=== PATIENT | female | born 1995 | race African-American/Black ===

== ENCOUNTER 2020-05-08 07:05 | Emergency (ER) | payer SELFPAY ==
[~2020-05-08] VITALS: Ht 165.1 cm; Wt 106.6 kg
[2020-05-08] MEDS ORDERED: SODIUM CHLORIDE 0.9% 1000ML 1,000 ML IV STA (07:32)
[2020-05-08] MEDS ORDERED: PIPER-TAZ 3.375 GM 50 ML IV STA (07:43)
[2020-05-08] MEDS ORDERED: SODIUM CHLORIDE FLUSH 10 ML SYR INJ PRN (07:45)
--- OUTSIDE RECORDS SUMMARY | 2020-05-08 08:04 | XMS REPORT | Continuity of Care Document ---
Author Author [facility] Organization [facility] Address [address] [place] [address] Phone Unavailable Care Team Providers Care Water Treatment Operator Name Role Phone Unavailable Unavailable Payers Payer Name Policy Type Policy Number Effective Date Expiration Date S ource Problems This patient has no known problems. Allergies, Adverse Reactions, Alerts Allergy Name Allergy Type Status Severity Reaction(s) Onset Date Inacti ve Date Treating Clinician Comments Source No Known Allergies DA Active U 2020-04-01 00:00:00 [facility] Medications This patient has no known medications. Procedures This patient has no known procedures. Results Test Description Test Time Test Comments Results Result Comments Source - US PELVIS COMPLETE 2020-04-30 12:45:00 Name: DARIEN CONNELL [facility] : 1995 Age/S: 24 / F [address] [facility] Unit #: [id number] Loc: [place] [address] Phys: Kenroy Mckoy Acct: [id number] Dis Date: Status: REG ER PHONE #: [phone] Exam Date: 04/30/2020 1239 FAX #: [phone] Reason: PELVIC PAIN EXAMS: CPT CODE: [id number] US PELVIS COMPLETE 65453 REASON FOR EXAM: PELVIC PAIN EXAM ORDER DATE: 04/30/2020 11:25 AM Attending MConstantinoDConstantino: Kenroy Mckoy PROCEDURE: - DUP AB/PEL/SC COMP, - US TRANSVAGINAL NON OB, - US PELVIS COMPLETE Technique: Grayscale images, color doppler, and spectral doppler images of the uterus and ovaries were obtained utilizing A transabdominal and transvaginal approach. Comparison study: Pelvic ultrasound 04/01/2020 FINDINGS: Uterus: size: 7.9 x 5.4 x 5.4 cm using transabdominal measurements echogenicity/masses: Probable multi fibroid uterus. The largest measures up to 1.4 x 1.1 x 1.1 cm. endometrium: 3.7 mm Duplex scans of the ovarian arteries were performed. Casanova scale images were supplemented with color-flow Doppler. Doppler flow velocity analysis (duplex Doppler) was performed. Right ovary: size: 2.7 x 1.6 x 2.3 cm cysts/masses: None Doppler findings: Normal arterial and venous waveforms. adnexal masses: None Left ovary: size: 2 x 1.4 x 2.2 cm cysts/masses: None Doppler findings: Normal arterial and venous waveforms. adnexal masses: None Free fluid: No fluid seen in the cul-de-sac. IMPRESSION: Multi fibroid uterus. Otherwise unremarkable pelvic ultrasound. PAGE 1 Signed Report (CONTINUED) Name: DARIEN CONNELL [facility] : 1995 Age/S: 24 / F [address] [facility] Unit #: [id number] Loc: [place] [address] Phys: Kenroy Mckoy Acct: [id number] Dis Date: Status: REG ER PHONE #: [phone] Exam Date: 04/30/2020 1239 FAX #: [phone] Reason: PELVIC PAIN EXAMS: CPT CODE: [id number] US PELVIS COMPLETE 27723 <Continued> Location: [facility] at 1245 Reported and signed by: Farhan Stovall M.D. CC: Adelso Gibbons MD; Kenroy Mckoy Technologist: Brina Samuels RDMS Trnscb Date/Time: 04/30/2020 (9833) [email or web address] Orig Print D/T: S: 04/30/2020 (7591) Probe: PAGE 2 Signed Report - US TRANSVAGINAL NON OB 2020-04-30 12:45:00 N vee: RODNEY CONNELLRENZO Kesha [facility] : 1995 Age/S: 24 / F [address] [facility] Unit #: [id number] Loc: [place] [address] Phys: Kenroy Mckoy Acct: [id number] Dis Date: Status: REG ER PHONE #: [phone] Exam Date: 04/30/2020 1239 FAX #: [phone] Reason: Pelvic Pain EXAMS: CPT CODE: [id number] [place] [address] REASON FOR EXAM: PELVIC PAIN EXAM ORDER DATE: 04/30/2020 11:25 AM Attending MDanya.: Kenroy Mckoy PROCEDURE: - DUP AB/PEL/SC COMP, - US TRANSVAGINAL NON OB, - US PELVIS COMPLETE Technique: Grayscale images, color doppler, and spectral doppler images of the uterus and ovaries were obtained utilizing A transabdominal and transvaginal approach. Comparison study: Pelvic ultrasound 04/01/2020 FINDINGS: Uterus: size: 7.9 x 5.4 x 5.4 cm using transabdominal measurements echogenicity/masses: Probable multi fibroid uterus. The largest measures up to 1.4 x 1.1 x 1.1 cm. endometrium: 3.7 mm Duplex scans of the ovarian arteries were performed. Casanova scale images were supplemented with color-flow Doppler. Doppler flow velocity analysis (duplex Doppler) was performed. Right ovary: size: 2.7 x 1.6 x 2.3 cm cysts/masses: None Doppler findings: Normal arterial and venous waveforms. adnexal masses: None Left ovary: size: 2 x 1.4 x 2.2 cm cysts/masses: None Doppler findings: Normal arterial and venous waveforms. adnexal masses: None Free fluid: No fluid seen in the cul-de-sac. IMPRESSION: Multi fibroid uterus. Otherwise unremarkable pelvic ultrasound. PAGE 1 Signed Report (CONTINUED) Name: RODNEY CONNELLRENZO Kesha [facility] : 1995 Age/S: 24 / F [address] [facility] Unit #: [id number] Loc: [place] [address] Phys: Kenroy Mckoy Acct: [id number] Dis Date: Status: REG ER PHONE #: [phone] Exam Date: 04/30/2020 1239 FAX #: [phone] Reason: Pelvic Pain EXAMS: CPT CODE: [id number] [place] [address] <Continued> Location: [facility] at 1245 Reported and signed by: Farhan Stovall M.D. CC: Adelso Gibbons MD; Kenroy Mckoy Technologist: Brina Samuels RDMS Trnndb Date/Time: 04/30/2020 (1245) [email or web address] Orig Print D/T: S: 04/30/2020 (1788) Probe: [id number] PAGE 2 Signed Report - DUP AB/PEL/SC COMP 2020-04-30 12:45:00 Name: DARIEN CONNELL [facility] : 1995 Age/S: 24 / F [address] [facility] Unit #: [id number] Loc: [place] [address] Phys: EanKenroy Ronni TRACEYP Acct: [id number] Dis Date: Status: REG ER PHONE #: [phone] Exam Date: 04/30/2020 1239 FAX #: [phone] Reason: PELVIC PAIN EXAMS: CPT CODE: [id number] DUP AB/PEL/SC COMP 90440 REASON FOR EXAM: PELVIC PAIN EXAM ORDER DATE: 04/30/2020 11:25 AM Attending Erik: Kenroy Mckoy PROCEDURE: - DUP AB/PEL/SC COMP, - US TRANSVAGINAL NON OB, - US PELVIS COMPLETE Technique: Grayscale images, color doppler, and spectral doppler images of the uterus and ovaries were obtained utilizing A transabdominal and transvaginal approach. Comparison study: Pelvic ultrasound 04/01/2020 FINDINGS: Uterus: size: 7.9 x 5.4 x 5.4 cm using transabdominal measurements echogenicity/masses: Probable multi fibroid uterus. The largest measures up to 1.4 x 1.1 x 1.1 cm. endometrium: 3.7 mm Duplex scans of the ovarian arteries were performed. Casanova scale images were supplemented with color-flow Doppler. Doppler flow velocity analysis (duplex Doppler) was performed. Right ovary: size: 2.7 x 1.6 x 2.3 cm cysts/masses: None Doppler findings: Normal arterial and venous waveforms. adnexal masses: None Left ovary: size: 2 x 1.4 x 2.2 cm cysts/masses: None Doppler findings: Normal arterial and venous waveforms. adnexal masses: None Free fluid: No fluid seen in the cul-de-sac. IMPRESSION: Multi fibroid uterus. Otherwise unremarkable pelvic ultrasound. PAGE 1 Signed Report (CONTINUED) Name: DARIEN CONNELL [facility] : 1995 Age/S: 24 / F [address] [facility] Unit #: [id number] Loc: [place] [address] Phys: Kenroy Mckoy Acct: [id number] Dis Date: Status: REG ER PHONE #: [phone] Exam Date: 04/30/2020 1239 FAX #: [phone] Reason: PELVIC PAIN EXAMS: CPT CODE: [id number] DUP AB/PEL/SC COMP 10352 <Continued> Location: [facility] at 1245 Reported and signed by: Farhan Stovall M.D. CC: Adelso Gibbons MD; Kenroy Mckoy Technologist: Brina Samuels RDMS Trnscb Date/Time: 04/30/2020 (1245) [email or web address] Orig Print D/T: S: 04/30/2020 (8088) Probe: PAGE 2 Signed Report BASIC METABOLIC PANEL 2020-04-30 12:10:00 Test Item SODIUM (test code = NA) 139 mmol/L 135-148 N POTASSIUM (test code = K) 3.7 mmol/L 3.5-5.1 N CHLORIDE (test code = CL) 105 mmol/L 101-109 N CARBON DIOXIDE (test code = CO2) 24.5 mmol/L 21-32 N ANION GAP (test code = GAP) 13 mmol/L 10-20 N GLUCOSE (test code = GLU) 104 mg/dL 74-106 N BLOOD UREA NITROGEN (test code = BUN) 13 mg/dL 3-21 N GLOMERULAR FILTRATION RATE (test code = GFR) > 60 mL/min >=60 Estimated GFR by using Modified MDRD formula.Chronic kidney disease is defined as either kidney damageor GFR <60 mL/min/1.73 m2 for >3 months. CREATININE (test code = CREAT) 0.80 mg/dL 0.55-1.3 N BUN/CREATININE RATIO (test code = BUN/CREA) 16.3 10-20 N CALCIUM (test code = CA) 8.9 mg/dL 8.4-10.2 N HEPATIC FUNCTION [id number] 12:10:00* Test Item Value Reference Range Interpretation Comments TOTAL PROTEIN (test code = PROT) 8.0 g/dL 6.5-8.4 N ALBUMIN (test code = ALB) 3.1 g/dL 3.4-4.8 L GLOBULIN (test code = GLOB) 4.9 G/DL 1-10 N ALBUMIN/GLOBULIN RATIO (test code = A/G) 0.6 RATIO 0.75-1.50 L BILIRUBIN TOTAL (test code = BILT) 0.30 mg/dL 0.0-1.0 N BILIRUBIN DIRECT (test code = BILD) 0.10 mg/dL 0.0-0.30 N SGOT/AST (test code = AST) 14 U/L 6-32 N SGPT/ALT (test code = ALT) 23 U/L 12-78 N N ote: Change in REFERENCE RANGE due to new reagent method. ALKALINE PHOSPHATASE TOTAL (test code = ALKP) 65 U/L 38-126 N [id number] 12:10:00* Test Item Value Reference Range Interpretation Comments LIPASE (test code = LIP) 134 U/L 128-270 N HCG SERUM [id number] 12:10:00* Test Item Value Reference Range Interpretation Comments HCG SERUM QUAL (test code = HCGQL) NEGATIVE NEGATIVE This HCGQL test is NOT applicable for MALE patients.Check with nurse about probable order error.If Tumor Marker Test needed, nurse should order test "HCGTU"(Test #550.01800) URINALYSIS [id number] 12:09:00* Test Item Value Reference Range Interpretation Comments UA COLOR (test code = COLU) YELLOW YELLOW UA APPEARANCE (test code = APPU) HAZY CLEAR A UA GLUCOSE DIPSTICK (test code = DGLUU) norm mg/dL NEGATIVE UA BILIRUBIN DIPSTICK (test code = BILU) NEGATIVE mg/dL NEGATIVE UA KETONE DIPSTICK (test code = KETU) 5 (Trace) mg/dL NEGATIVE A UA SPECIFIC GRAVITY (test code = SGU) 1.025 1.001-1.035 UA BLOOD DIPSTICK (test code = SERG) 150 (3+) Douglas/uL NEGATIVE A UA PH DIPSTICK (test code = LUKE) 6.0 5.0-8.0 UA PROTEIN DIPSTICK (test code = PROU) 30 (1+) mg/dL Neg-15 A UA UROBILINIOGEN DIPSTICK (test code = URO) 1 mg/dL 0.0-0.2 A UA NITRITE DIPSTICK (test code = JOSÉ LUIS) NEGATIVE NEGATIVE UA LEUKOCYTE ESTERASE DIPSTICK (test code = LEUU) 25 Jerri/uL (Tra ce) uL NEGATIVE A UA WBC (test code = WBCU) 0-5 per HPF 0-5 UA RBC (test code = RBCU) 0-3 per HPF 0-5 UA EPITHELIAL CELLS (test code = EPIU) Moderate (5-10/hpf) per HPF Few UA BACTERIA (test code = BACU) MANY per HPF NONE Urine Source? Clean CatchBASIC METABOLIC [id number] 12:08:00* Test Item Value Reference Range Interpretation Comments SODIUM (test code = NA) 139 mmol/L 135-148 N POTASSIUM (test code = K) 3.7 mmol/L 3.5-5.1 N CHLORIDE (test code = CL) 105 mmol/L 101-109 N CARBON DIOXIDE (test code = CO2) 24.5 mmol/L 21-32 N ANION GAP (test code = GAP) 13 mmol/L 10-20 N GLUCOSE (test code = GLU) 104 mg/dL 74-106 N BLOOD UREA NITROGEN (test code = BUN) 13 mg/dL 3-21 N GLOMERULAR FILTRATION RATE (test code = GFR) > 60 mL/min >=60 Estimated GFR by using Modified MDRD formula.Chronic kidney disease is defined as either kidney damageor GFR <60 mL/min/1.73 m2 for >3 months. CREATININE (test code = CREAT) 0.80 mg/dL 0.55-1.3 N BUN/CREATININE RATIO (test code = BUN/CREA) 16.3 10-20 N CALCIUM (test code = CA) 8.9 mg/dL 8.4-10.2 N HEPATIC FUNCTION [id number] 12:08:00* Test Item Value Reference Range Interpretation Comments TOTAL PROTEIN (test code = PROT) gram/dL 6.4-8.2 ALBUMIN (test code = ALB) g/dL 3.4-5.0 GLOBULIN (test code = GLOB) g/dL 2.7-4.2 ALBUMIN/GLOBULIN RATIO (test code = A/G) 0.75-1.50 BILIRUBIN TOTAL (test code = BILT) mg/dL 0.2-1.2 BILIRUBIN DIRECT (test code = BILD) mg/dL 0.0-0.20 SGOT/AST (test code = AST) IUnit/L 15-37 SGPT/ALT (test code = ALT) U/L 10-69 ALKALINE PHOSPHATASE TOTAL (test code = ALKP) IUnit/L 45-117 [id number] 12:08:00* Test Item Value Reference Range Interpretation Comments LIPASE (test code = LIP) Unit/L 144-286 HCG SERUM [id number] 12:08:00* Test Item Value Reference Range Interpretation Comments HCG SERUM QUAL (test code = HCGQL) NEGATIVE NEGATIVE This HCGQL test is NOT applicable for MALE patients.Check with nurse about probable order error.If Tumor Marker Test needed, nurse should order test "HCGTU"(Test #550.74721) BASIC METABOLIC [id number] 12:04:00* Test Item Value Reference Range Interpretation Comments SODIUM (test code = NA) 139 mmol/L 135-148 N POTASSIUM (test code = K) 3.7 mmol/L 3.5-5.1 N CHLORIDE (test code = CL) 105 mmol/L 101-109 N CARBON DIOXIDE (test code = CO2) 24.5 mmol/L 21-32 N ANION GAP (test code = GAP) 13 mmol/L 10-20 N GLUCOSE (test code = GLU) 104 mg/dL 74-106 N BLOOD UREA NITROGEN (test code = BUN) 13 mg/dL 3-21 N GLOMERULAR FILTRATION RATE (test code = GFR) > 60 mL/min >=60 Estimated GFR by using Modified MDRD formula.Chronic kidney disease is defined as either kidney damageor GFR <60 mL/min/1.73 m2 for >3 months. CREATININE (test code = CREAT) 0.80 mg/dL 0.55-1.3 N BUN/CREATININE RATIO (test code = BUN/CREA) 16.3 10-20 N CALCIUM (test code = CA) 8.9 mg/dL 8.4-10.2 N HEPATIC FUNCTION [id number] 12:04:00* Test Item Value Reference Range Interpretation Comments TOTAL PROTEIN (test code = PROT) gram/dL 6.4-8.2 ALBUMIN (test code = ALB) g/dL 3.4-5.0 GLOBULIN (test code = GLOB) g/dL 2.7-4.2 ALBUMIN/GLOBULIN RATIO (test code = A/G) 0.75-1.50 BILIRUBIN TOTAL (test code = BILT) mg/dL 0.2-1.2 BILIRUBIN DIRECT (test code = BILD) mg/dL 0.0-0.20 SGOT/AST (test code = AST) IUnit/L 15-37 SGPT/ALT (test code = ALT) U/L 10-69 ALKALINE PHOSPHATASE TOTAL (test code = ALKP) IUnit/L 45-117 [id number] 12:04:00* Test Item Value Reference Range Interpretation Comments LIPASE (test code = LIP) Unit/L 144-286 HCG SERUM [id number] 12:04:00* Test Item Value Reference Range Interpretation Comments HCG SERUM QUAL (test code = HCGQL) NEGATIVE URINALYSIS [id number] 12:02:00* Test Item Value Reference Range Interpretation Comments UA COLOR (test code = COLU) YELLOW YELLOW UA APPEARANCE (test code = APPU) HAZY CLEAR A UA GLUCOSE DIPSTICK (test code = DGLUU) norm mg/dL NEGATIVE UA BILIRUBIN DIPSTICK (test code = BILU) NEGATIVE mg/dL NEGATIVE UA KETONE DIPSTICK (test code = KETU) 5 (Trace) mg/dL NEGATIVE A UA SPECIFIC GRAVITY (test code = SGU) 1.025 1.001-1.035 UA BLOOD DIPSTICK (test code = SERG) 150 (3+) Douglas/uL NEGATIVE A UA PH DIPSTICK (test code = LUKE) 6.0 5.0-8.0 UA PROTEIN DIPSTICK (test code = PROU) 30 (1+) mg/dL Neg-15 A UA UROBILINIOGEN DIPSTICK (test code = URO) 1 mg/dL 0.0-0.2 A UA NITRITE DIPSTICK (test code = JOSÉ LUIS) NEGATIVE NEGATIVE UA LEUKOCYTE ESTERASE DIPSTICK (test code = LEUU) 25 Jerri/uL (Tra ce) uL NEGATIVE A UA WBC (test code = WBCU) per HPF 0-5 UA RBC (test code = RBCU) per HPF 0-5 UA EPITHELIAL CELLS (test code = EPIU) per HPF Few UA BACTERIA (test code = BACU) per HPF NONE Urine Source? Clean CatchCBC W/O [id number] 11:56:00* Test Item Value Reference Range Interpretation Comments WHITE BLOOD CELL (test code = WBC) 8.3 K/mm3 4.5-12.5 N RED BLOOD CELL (test code = RBC) 4.91 mill/mm3 3.7-5.2 N HEMOGLOBIN (test code = HGB) 11.1 gram/dL 11.5-15.5 L HEMATOCRIT (test code = HCT) 36.0 % 36.0-46.0 N MEAN CELL VOLUME (test code = MCV) 73.3 fL 80-98 L MEAN CELL HGB (test code = MCH) 22.6 picogram 27.0-33.0 L MEAN CELL HGB CONCETRATION (test code = MCHC) 30.8 gram/dL 33.0-36. 0 L RED CELL DISTRIBUTION WIDTH (test code = RDW) 14.5 % 11.6-16. 2 N RED CELL DISTRIBUTION WIDTH SD (test code = RDW-SD) 38.8 fL 37 .0-51.0 N PLATELET COUNT (test code = PLT) 419 K/mm3 150-450 N MEAN PLATELET VOLUME (test code = MPV) 9.7 fL 6.7-11.0 N CHLAMYDIA GC DNA BY [id number] 13:09:00* Test Item Value Reference Range Interpretation Comments C. TRACHOMATIS DNA BY PCR (test code = CHLAMTDNA) Negative Nega tive N. GONORRHOEAE DNA BY PCR (test code = NGONORDNA) Negative Nega tive [facility]formed At: [facility] [place], [place] [id number] Aceves MD Ph:[phone] performed at: [facility] [address] [place] [address] - CT ABD PELVIS [id number] 19:36:00 Name: DARIEN CONNELL [facility] : 1995 Age/S: 24 / F [address] [facility] Unit #: [id number] Loc: [place] [address] Phys: Geovany Mai MD Acct: [id number] Dis Date: Status: REG ER PHONE #: [phone] Exam Date: 04/01/2020 175 FAX #: [phone] Reason: RLQ pain EXAMS: CPT CODE: [id number] CT ABD PELVIS W/CONT 53349 EXAM: CT of the abdomen and pelvis with contrast; INFORMATION: Right lower quadrant pain; TECHNIQUE AND FINDINGS: CT dose reduction protocol; 5 mm cuts through the abdomen and pelvis during and after intravenous infusion of contrast material. The liver is enlarged and shows slightly decreased attenuation. No focal lesions. No abnormalities of the biliary system. Pancreas and spleen unremarkable. 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 The left adrenal gland is also absent. The right adrenal gland is not clearly identified but there is no evidence of an adrenal mass lesion. The right kidney is unremarkable; no hydronephrosis. No acute bowel abnormalities. The uterus is enlarged with a solid nodule along its posterior portion. No adnexal lesions. Lung bases are clear. IMPRESSION: 1. No acute abdominal or pelvic abnormalities. 2. Fatty infiltration of the liver. 3. Solitary and unremarkable right kidney. 4. Uterine fibroid. Location code: [facility] at 1936 Reported and signed by: Edu Barr M.D. CC: Geovany Mai MD Technologist:Sue Bonilla CTDI: DLP: Trnscb Date/Time: 04/01/2020 (1935) [email or web address] Orig Print D/T: S: 04/01/2020 (1938) PAGE 1 Signed Report - DUP AB/PEL/SC [id number] 19:01:00 Name: DARIEN CONNELL [facility] : 1995 Age/S: 24 / F [address] [facility] Unit #: [id number] Loc: [place] [address] Phys: Avinash Mai MD Acct: [id number] Di s Date: Status: REG ER PHONE #: Exam Date: 04/01/2020 2863 FAX #: [phone] Reason: RLQ pain and vaginal bleeding EXAMS: CPT CODE: [id number] DUP AB/PEL/SC COMP 18153 EXAM: Transvaginal ultras ound and Doppler sonography; INFORMATION: Right lower quadrant sara n and vaginal bleeding; TECHNIQUE AND FINDINGS: Transvaginal grayscale imaging was combined with color Doppler sonography and spectral analysis. The uterus is of normal size and shape. It measures 7.4 x 2.9 x 3.9 cm. Thin endometrial stripe, measuring 5 mm in thickness; no fl uid collection within the endometrial canal. A solid nodule is seen within the myometrium, measuring 4.8 x 3.9 cm in diameter. This is consist ent with a fibroid. The ovaries are of normal size and shape and with norm al flow pattern on Doppler exam. The right ovary measures 3.2 x 1.8 x 2.3 cm. The left ovary measures 2.5 x 1.6 x 2.2 cm. No free fluid within the cul-de-sac. IMPRESSION: 1. Uterine fibroid. 2. No adnexal lesions. Location code: [facility] at 1901 Reported and signed by: Edu Barr M.D. CC: Geovany Mai MD Technologist: Bolivar Mendez [facility] Trnscb Date/Time: 04/01/2020 (1900) [email or web address] Orig Print D/T: S: 04/01/2020 (1903) Probe: PAGE 1 Signed Report - US TRANSVAGINAL NON [id number] 19:01:00 Name: DARIEN CONNELL [facility] : 1995 Age/S: 24 / [address] [facility] Unit #: [id number] Loc: [place] [address] Phys: Geovany Mai MD Acct: [id number] Dis Date: Status: REG ER PHONE #: [phone] Exam Date: 04/01/20201743 FAX #: [phone] Reason: RLQ pain and vaginal bleeding EXAMS: CPT CODE: [id number] [place] [address] EXAM: Transvaginal ultrasound and Doppler sonography; INFORMATION: Right lower quadrant pain and vaginal bleeding; TECHNIQUE AND FINDINGS: Transvaginal grayscale imaging was combined with color Doppler sonography and spectral analysis. The uterus is of normal size and shape. It measures 7.4 x 2.9 x 3.9 cm. Thin endometrial stripe, measuring 5 mm in thickness; no fluid collection within the endometrial canal. A solid nodule is seen within the myometrium, measuring 4.8 x 3.9 cm in diameter. This is consistent with a fibroid. The ovaries are of normal size and shape and with normal flow pattern on Doppler exam. The right ovary measures 3.2 x 1.8 x 2.3 cm. The left ovary measures 2.5 x 1.6 x 2.2 cm. No free fluid within the cul-de-sac. IMPRESSION: 1. Uterine fibroid. 2. No adnexal lesions. Location code: [facility] at 1901 Reported and signed by: Edu Barr M.D. CC: Geovany Mai MD Technologist: Bolivar Mendez RDOK Trnndb Date/Time: 04/01/2020 (1900) Perry Orig Print D/T: S: 04/01/2020 (1903) Probe: [id number] PAGE 1 Signed Report - XR CHEST 1 [id number] 17:59:00 Name: DARIEN CONNELL [facility] : 1995 Age/S:24 /F [address] [facility] Unit#:[id number] Loc: [place] [address] Phys: Avinash Mai MD Dis Date: PHONE #: [phone] Status: PRE ER FAX #: [phone] Exam Date: 04/01/2020 Re ason: Abdominal Pain EXAMS: CPT CODE: [id number] XR CHEST 1 V 43040 EXAM: Chest X-ray, 1 view; CLINICAL HISTORY: Chest pain and abdominal pain; FINDINGS: The lungs are clear, no infiltrates, no edema; no effusions; no pneu mothorax; normal cardiomediastinal silhouette. IMPRESSION: Normal chest x-ray. Location code: [facility] at 1759 Reported and signed by: Edu Barr M.D. CC: Geovany Mai MD Technologist: Sue Bonilla Trnscrpt Data: 04/01/2020 (1758) Perry Orig Print D/T: S: 04/01/2020 (1803) PAGE 1 Signed Report BASIC METABOLIC PANEL 2020-04-01 17:09:00* Test Item Value Reference Range Interpretation Comments SODIUM (test code = NA) 138 mmol/L 136-145 N POTASSIUM (test code = K) 3.8 mmol/L 3.5-5.1 N CHLORIDE (test code = CL) 105 mmol/L 101-109 N CARBON DIOXIDE (test code = CO2) 24.4 mmol/L 21-32 N ANION GAP (test code = GAP) 12 mmol/L 10-20 N GLUCOSE (test code = GLU) 89 mg/dL 74-106 N BLOOD UREA NITROGEN (test code = BUN) 15 mg/dL 3-21 N GLOMERULAR FILTRATION RATE (test code = GFR) > 60 mL/min >=60 Estimated GFR by using Modified MDRD formula.Chronic kidney disease is defined as either kidney damageor GFR <60 mL/min/1.73 m2 for >3 months. CREATININE (test code = CREAT) 0.98 mg/dL 0.55-1.3 N BUN/CREATININE RATIO (test code = BUN/CREA) 15.3 10-20 N CALCIUM (test code = CA) 8.8 mg/dL 8.4-10.2 N HEPATIC FUNCTION [id number] 17:09:00* Test Item Value Reference Range Interpretation Comments TOTAL PROTEIN (test code = PROT) 8.1 g/dL 6.5-8.4 N ALBUMIN (test code = ALB) 3.3 g/dL 3.4-4.8 L GLOBULIN (test code = GLOB) 4.8 G/DL 1-10 N ALBUMIN/GLOBULIN RATIO (test code = A/G) 0.69 RATIO 0.75-1.50 L BILIRUBIN TOTAL (test code = BILT) 0.20 mg/dL 0.0-1.0 N BILIRUBIN DIRECT (test code = BILD) 0.00 mg/dL 0.0-0.30 N SGOT/AST (test code = AST) 14 U/L 6-32 N SGPT/ALT (test code = ALT) 23 U/L 12-78 N N ote: Change in REFERENCE RANGE due to new reagent method. ALKALINE PHOSPHATASE TOTAL (test code = ALKP) 63 U/L 38-126 N [id number] 17:09:00* Test Item Value Reference Range Interpretation Comments LIPASE (test code = LIP) 161 U/L 128-270 N HCG SERUM [id number] 17:09:00* Test Item Value Reference Range Interpretation Comments HCG SERUM QUAL (test code = HCGQL) NEGATIVE NEGATIVE This HCGQL test is NOT applicable for MALE patients.Check with nurse about probable order error.If Tumor Marker Test needed, nurse should order test "HCGTU"(Test #[id number]) [id number] 17:09:00* Test Item Value Reference Range Interpretation Comments TROPONIN-I (test code = TROPI) <0.015 ng/mL 0.00-0.056 N URINALYSIS [id number] 17:02:00* Test Item Value Reference Range Interpretation Comments UA COLOR (test code = COLU) DARK YELLOW YELLOW A UA APPEARANCE (test code = APPU) HAZY CLEAR A UA GLUCOSE DIPSTICK (test code = DGLUU) norm mg/dL NEGATIVE UA BILIRUBIN DIPSTICK (test code = BILU) NEGATIVE mg/dL NEGATIVE UA KETONE DIPSTICK (test code = KETU) 5 (Trace) mg/dL NEGATIVE A UA SPECIFIC GRAVITY (test code = SGU) 1.020 1.001-1.035 UA BLOOD DIPSTICK (test code = SERG) neg Douglas/uL NEGATIVE UA PH DIPSTICK (test code = LUKE) 5.0 5.0-8.0 UA PROTEIN DIPSTICK (test code = PROU) 15 (TRACE) mg/dL Neg-15 A UA UROBILINIOGEN DIPSTICK (test code = URO) 1 mg/dL 0.0-0.2 A UA NITRITE DIPSTICK (test code = JOSÉ LUIS) NEGATIVE NEGATIVE UA LEUKOCYTE ESTERASE DIPSTICK (test code = LEUU) 25 Jerri/uL (Tra ce) uL NEGATIVE A UA WBC (test code = WBCU) 0-5 per HPF 0-5 UA RBC (test code = RBCU) NONE SEEN per HPF 0-5 UA EPITHELIAL CELLS (test code = EPIU) Few (2-5/hpf) per HPF Few UA BACTERIA (test code = BACU) MANY per HPF NONE A UA MUCUS (test code = MUCU) MODERATE per LPF NONE-FEW A Urine Source? Clean CatchBASIC METABOLIC [id number] 17:01:00* Test Item Value Reference Range Interpretation Comments SODIUM (test code = NA) 138 mmol/L 136-145 N POTASSIUM (test code = K) 3.8 mmol/L 3.5-5.1 N CHLORIDE (test code = CL) 105 mmol/L 101-109 N CARBON DIOXIDE (test code = CO2) 24.4 mmol/L 21-32 N ANION GAP (test code = GAP) 12 mmol/L 10-20 N GLUCOSE (test code = GLU) 89 mg/dL 74-106 N BLOOD UREA NITROGEN (test code = BUN) 15 mg/dL 3-21 N GLOMERULAR FILTRATION RATE (test code = GFR) > 60 mL/min >=60 Estimated GFR by using Modified MDRD formula.Chronic kidney disease is defined as either kidney damageor GFR <60 mL/min/1.73 m2 for >3 months. CREATININE (test code = CREAT) 0.98 mg/dL 0.55-1.3 N BUN/CREATININE RATIO (test code = BUN/CREA) 15.3 10-20 N CALCIUM (test code = CA) 8.8 mg/dL 8.4-10.2 N HEPATIC FUNCTION [id number] 17:01:00* Test Item Value Reference Range Interpretation Comments TOTAL PROTEIN (test code = PROT) gram/dL 6.4-8.2 ALBUMIN (test code = ALB) g/dL 3.4-5.0 GLOBULIN (test code = GLOB) g/dL 2.7-4.2 ALBUMIN/GLOBULIN RATIO (test code = A/G) 0.75-1.50 BILIRUBIN TOTAL (test code = BILT) mg/dL 0.2-1.2 BILIRUBIN DIRECT (test code = BILD) mg/dL 0.0-0.20 SGOT/AST (test code = AST) IUnit/L 15-37 SGPT/ALT (test code = ALT) U/L 10-69 ALKALINE PHOSPHATASE TOTAL (test code = ALKP) IUnit/L 45-117 [id number] 17:01:00* Test Item Value Reference Range Interpretation Comments LIPASE (test code = LIP) Unit/L 144-286 HCG SERUM [id number] 17:01:00* Test Item Value Reference Range Interpretation Comments HCG SERUM QUAL (test code = HCGQL) NEGATIVE NEGATIVE This HCGQL test is NOT applicable for MALE patients.Check with nurse about probable order error.If Tumor Marker Test needed, nurse should order test "HCGTU"(Test #[id number]) [id number] 17:01:00* Test Item Value Reference Range Interpretation Comments TROPONIN-I (test code = TROPI) ng/mL 0-0.045 URINALYSIS [id number] 16:58:00* Test Item Value Reference Range Interpretation Comments UA COLOR (test code = COLU) DARK YELLOW YELLOW A UA APPEARANCE (test code = APPU) HAZY CLEAR A UA GLUCOSE DIPSTICK (test code = DGLUU) norm mg/dL NEGATIVE UA BILIRUBIN DIPSTICK (test code = BILU) NEGATIVE mg/dL NEGATIVE UA KETONE DIPSTICK (test code = KETU) 5 (Trace) mg/dL NEGATIVE A UA SPECIFIC GRAVITY (test code = SGU) 1.020 1.001-1.035 UA BLOOD DIPSTICK (test code = SERG) neg Douglas/uL NEGATIVE UA PH DIPSTICK (test code = LUKE) 5.0 5.0-8.0 UA PROTEIN DIPSTICK (test code = PROU) 15 (TRACE) mg/dL Neg-15 A UA UROBILINIOGEN DIPSTICK (test code = URO) 1 mg/dL 0.0-0.2 A UA NITRITE DIPSTICK (test code = JOSÉ LUIS) NEGATIVE NEGATIVE UA LEUKOCYTE ESTERASE DIPSTICK (test code = LEUU) 25 Jerri/uL (Tra ce) uL NEGATIVE A UA WBC (test code = WBCU) per HPF 0-5 UA RBC (test code = RBCU) per HPF 0-5 UA EPITHELIAL CELLS (test code = EPIU) per HPF Few UA BACTERIA (test code = BACU) per HPF NONE Urine Source? Clean CatchBASIC METABOLIC [id number] 16:56:00* Test Item Value Reference Range Interpretation Comments SODIUM (test code = NA) mmol/L 135-148 POTASSIUM (test code = K) mmol/L 3.5-5.1 CHLORIDE (test code = CL) mmol/L 101-109 CARBON DIOXIDE (test code = CO2) mmol/L 21-32 ANION GAP (test code = GAP) mmol/L 10-20 GLUCOSE (test code = GLU) mg/dL 74-106 BLOOD UREA NITROGEN (test code = BUN) mg/dL 3-21 GLOMERULAR FILTRATION RATE (test code = GFR) mL/min >=60 CREATININE (test code = CREAT) mg/dL 0.55-1.3 BUN/CREATININE RATIO (test code = BUN/CREA) 10-20 CALCIUM (test code = CA) mg/dL 8.4-10.2 HEPATIC FUNCTION [id number] 16:56:00* Test Item Value Reference Range Interpretation Comments TOTAL PROTEIN (test code = PROT) gram/dL 6.4-8.2 ALBUMIN (test code = ALB) g/dL 3.4-5.0 GLOBULIN (test code = GLOB) g/dL 2.7-4.2 ALBUMIN/GLOBULIN RATIO (test code = A/G) 0.75-1.50 BILIRUBIN TOTAL (test code = BILT) mg/dL 0.2-1.2 BILIRUBIN DIRECT (test code = BILD) mg/dL 0.0-0.20 SGOT/AST (test code = AST) IUnit/L 15-37 SGPT/ALT (test code = ALT) U/L 10-69 ALKALINE PHOSPHATASE TOTAL (test code = ALKP) IUnit/L 45-117 [id number] 16:56:00* Test Item Value Reference Range Interpretation Comments LIPASE (test code = LIP) Unit/L 144-286 HCG SERUM [id number] 16:56:00* Test Item Value Reference Range Interpretation Comments HCG SERUM QUAL (test code = HCGQL) NEGATIVE NEGATIVE This HCGQL test is NOT applicable for MALE patients.Check with nurse about probable order error.If Tumor Marker Test needed, nurse should order test "HCGTU"(Test #[id number]) [id number] 16:56:00* Test Item Value Reference Range Interpretation Comments TROPONIN-I (test code = TROPI) ng/mL 0-0.045 CBC W/O [id number] 16:52:00* Test Item Value Reference Range Interpretation Comments WHITE BLOOD CELL (test code = WBC) 9.9 K/mm3 4.5-12.5 N RED BLOOD CELL (test code = RBC) 4.84 mill/mm3 3.7-5.2 N HEMOGLOBIN (test code = HGB) 11.2 gram/dL 11.5-15.5 L HEMATOCRIT (test code = HCT) 36.0 % 36.0-46.0 N MEAN CELL VOLUME (test code = MCV) 74.4 fL 80-98 L MEAN CELL HGB (test code = MCH) 23.1 picogram 27.0-33.0 L MEAN CELL HGB CONCETRATION (test code = MCHC) 31.1 gram/dL 33.0-36. 0 L RED CELL DISTRIBUTION WIDTH (test code = RDW) 15.3 % 11.6-16. 2 N RED CELL DISTRIBUTION WIDTH SD (test code = RDW-SD) 41.9 fL 37 .0-51.0 N PLATELET COUNT (test code = PLT) 376 K/mm3 150-450 N MEAN PLATELET VOLUME (test code = MPV) 9.7 fL 6.7-11.0 N
[2020-05-08] MEDS ORDERED: SODIUM CHLORIDE 0.9% 1000ML 1,000 ML ONE (08:08)
[2020-05-08] MEDS ORDERED: SODIUM CHLORIDE 0.9% 50ML 50 ML ONE (08:22)
[2020-05-08] MEDS ORDERED: IOPAMIDOL 370 MG/ML 200 ML INFUS..BTL INJ ONE (08:22)
--- NOTE | 2020-05-08 08:23 | Emergency Department Note ---
History of Present Illnes History of Present Illness Chief Complaint: rlq pain History of Present Illness This is a 24 year old female. was doing well until 3 months ago then vaginal bleeding, fatigue, then tooth ache/rgt facial pain and swelling, then 2 days ago rlq pain, n/v, lightheadedness. pt was seen at another ER in the past 2 weeks and had blood work and pelvic ultrasound which were negatives Historian: Patient Arrival Mode: Car History limited by: condition of the patient (normal) Onset (how long ago): day(s) (2) Location: rlq Quality: sharp Radiation: Reports non-radiation Severity: moderate Onset quality: gradual Duration (how long): day(s) (2) Timing of current episode: constant Progression: waxing and waning Chronicity: new Context: Denies recent illness, Denies recent surgery, Denies recent immobilization, Denies recent travel, Denies trauma/injury, Denies new medications, Denies hx of DVT/PE, Denies non-compliance w/ medications Relieving factors: rest Exacerbating factors: movement Associated symptoms: Reports nausea/vomiting Treatments prior to arrival: none Past Medical/Family History Physician Review I have reviewed the patient's past medical and family history. Any updates have been documented here. Past Medical History Recent Fever: No Clinical Suspicion of Infectio: No New/Unexplained Change in Ment: No Past Medical History: None Other Surgery: LEFT KIDNEY REMOVED WILMS TUMORS CANCER Social History Smoking Cessation: Current every day smoker Counseling Performed: Yes Alcohol Use: Social Any Illegal Drug Use: No Other Any Pre-Existing Lines (PICC,: No Review of Systems Review of Systems Constitutional: Reports no symptoms EENTM: Reports other (+toothache(ruq) +swollen rgt face) Cardiovascular: Reports no symptoms Respiratory: Reports no symptoms Gastrointestinal: Reports as per HPI Genitourinary: Reports no symptoms Musculoskeletal: Reports no symptoms Integumentary: Reports no symptoms Neurological: Reports as per HPI, Reports other (lightheadedness) Psychological: Reports no symptoms Endocrine: Reports no symptoms Hematological/Lymphatic: Reports no symptoms Review of other systems: All other systems negative Physical Exam Related Data Allergies: Coded Allergies: No Known Allergies (Unverified , 05/08/20) Triage Vital Signs Vital Signs Date Time Temp Pulse Resp B/P (MAP) Pulse Ox O2 Delivery O2 Flow Rate FiO2 05/08/20 07:11 98.6 92 16 135/80 100 Room Air Vital signs reviewed: Yes Physical Exam CONSTITUTIONAL Constitutional: Present well-developed, Present well-nourished HENT HENT: Present normocephalic, Present atraumatic, Present oropharynx clear/moist, Present nose normal HENT L/R: Present left ext ear normal, Present right ext ear normal, Present other (+tender rgt facial swelling/ tooth# 3 tenderness/+hortenisa) EYES Eyes: Reports PERRL, Reports conjunctivae normal NECK Neck: Present ROM normal PULMONARY Pulmonary: Present effort normal, Present breath sounds normal CARDIOVASCULAR Cardiovascular: Present regular rhythm, Present heart sounds normal, Present capillary refill normal, Present normal rate GASTROINTESTINAL Abdominal: Present soft, Present bowel sounds normal, Present tender (rlq), Present guarding; Absent distension, Absent mass, Absent rebound, Absent hernia GENITOURINARY Genitourinary: Present exam deferred SKIN Skin: Present warm, Present dry MUSCULOSKELETAL Musculoskeletal: Present ROM normal NEUROLOGICAL Neurological: Present alert, Present oriented x 3, Present no gross motor or sensory deficits PSYCHOLOGICAL Psychological: Present mood/affect normal, Present judgement normal Results Laboratory Lab results reviewed: Yes Laboratory comments cbc normal except hbg = 11.1, bmp normal, lft normal except albumin= 3.3, , ua normal except specific gravity greater than 1.03, urine hcg= neg Imaging Imaging results reviewed: Yes Impressions ct abd/pelvis= neg Assessment & Plan Medical Decision Making MDM see below Reassessment Reassessment time: 10:06 Reassessment symptoms except vaginal bleeding resolved Assessment & Plan Final Impression: (1) Acute abdominal pain (2) Dysfunctional uterine bleeding (3) Dehydration (4) Tooth abscess (5) Anemia Depart Disposition: HOME, SELF-CARE Last Vital Signs Date Time Temp Pulse Resp B/P (MAP) Pulse Ox O2 Delivery O2 Flow Rate FiO2 05/08/20 07:11 98.6 92 16 135/80 100 Room Air Home Meds Active Scripts Medroxyprogesterone Acetate (MEDROXYPROGESTERONE ACETATE) 10 Mg Tablet, 10 MG PO DAILY, #10 TAB Prov:GEOFF JEFFRIES 05/08/20 Prednisone (PREDNISONE) 20 Mg Tab, 60 MG PO DAILY PRN for MODERATE PAIN (4-6), #15 TAB take 3 20 mg pills at once Prov:GEOFF JEFFRIES 05/08/20 Clindamycin Hcl (CLINDAMYCIN HCL) 300 Mg Capsule, 300 MG PO Q6H, #40 TAB 1 Refill Prov:GEOFF JEFFRIES 05/08/20 Ondansetron (ONDANSETRON ODT) 8 Mg Tab.rapdis, 4 MG PO Q4HR PRN for NAUSEA AND VOMITING, #30 TAB Prov:GEOFF JEFFRIES 05/08/20 Medications in the ED Sodium Chloride 10 ml PRN PRN INJ IV SITE FLUSH Last administered on 05/08/20at 0 7:58; Admin Dose 10 ML; Start 05/08/20 at 07:45; Stop 06/07/20 at 07:44; Status UNV Sodium Chloride 1,000 ml @ 1,000 mls/hr Q1H STAT IV Last administered on 05/08/20at 08:03; Admin Dose 1,000 MLS/HR; Start 05/08/20 at 07:32; Stop 05/08/20 at 08:31 Piperacillin Sod/ Tazobactam Sod 50 ml @ 100 mls/hr ONCE STAT IV Last administered on 05/08/20at 08:03; Admin Dose 100 MLS/HR; Start 05/08/20 at 07:43; Stop 05/08/20 at 08:12; Status UNV Sodium Chloride 1,000 ml @ STK-MED ONCE .ROUTE ; Start 05/08/20 at 08:08; S top 05/08/20 at 08:02; Status DC GEOFF JEFFRIES May 08, 2020 08:23
--- NOTE | 2020-05-08 09:19 | Diagnostic Imaging Report ---
CT of the abdomen and pelvis, with contrast, 05/08/2020. History: Right lower quadrant pain for 3 days. Comparison: None available. Technique: Multidetector CT scanning of the abdomen and pelvis was performed from the level of the lung bases to the inferior pubic rami after intravenous administration of contrast. Coronal and sagittal multiplanar reformations were obtained. RADIATION DOSE: Total DLP: 756 mGy*cm Dose modulation, iterative reconstruction, and/or weight based adjustment of the mA/kV was utilized to reduce the radiation dose to as low as reasonably achievable. Discussion: LUNG BASES: No visualized abnormalities. ABDOMEN: The liver, gallbladder, biliary tree, spleen, pancreas, right adrenal gland, and right kidney are normal. The left kidney and adrenal glands are absent, and surgical clips are present in the area consistent with history of left nephrectomy. The hepatic vein, portal vein, and splenic vein are patent. The abdominal aorta is within normal limits for size. Evaluation of bowel is limited without oral contrast. There is no bowel dilatation. The appendix is not identified but there is no evidence of inflammation in the right lower quadrant. There is no evidence of adenopathy or free fluid. PELVIS: The bladder, uterus, and adnexa are unremarkable. There is no evidence of free fluid or adenopathy. BONES AND SOFT TISSUES: No acute findings. IMPRESSION: Status post left nephrectomy. Otherwise unremarkable CT of the abdomen and pelvis. Signed by: Hector Landers on 05/08/2020 9:16 AM
[2020-05-08] MEDS ORDERED: KETOROLAC TROMETHAMINE 30 MG/ML VIAL IV STA (09:27)
[2020-05-08] MEDS ORDERED: KETOROLAC TROMETHAMINE 30 MG/ML VIAL ONE (09:31)
[2020-05-08 09:49] VITALS: BP 131/79
[2020-05-08] MEDS ORDERED: ONDANSETRON HCL INJ 2MG/ML 2ML 2 MG/ML VIAL ONE (09:52)
[2020-05-08] MEDS ORDERED: MEDROXYPROGESTE10 MG PO (09:55)
[2020-05-08] MEDS ORDERED: CLINDAMYCIN HC300 MG PO (09:55)
[2020-05-08] MEDS ORDERED: ONDANSETRON ODT8 MG PO (09:55)
[2020-05-08] MEDS ORDERED: PREDNISONE20 MG PO (09:55)
[2020-05-08] MEDS ORDERED: ONDANSETRON HCL INJ 2MG/ML 2ML 2 MG/ML VIAL IV STA (10:09)
== END 2020-05-08 10:10 | disposition home or self-care (01) ==
LOC: FSED 07:30
DX: R10.31 Right lower quadrant pain (principal); N93.8 Other specified abnormal uterine and vaginal bleeding; K04.7 Periapical abscess without sinus; E86.0 Dehydration; D64.9 Anemia, unspecified
CPT/HCPCS: 74177; 80048; 80076; 81003; 81025; 85025; 99284; J1885; J2405; J2543; J7030; Q9967